=== PATIENT | female | born 2005 | race American Indian/Alaskan Native ===

== ENCOUNTER 2023-01-16 10:05 | Observation (INO) | payer OTHER ==
[~2023-01-16] VITALS: Ht 160 cm; Wt 88.0 kg
[2023-01-16] VITALS (11 sets, daily range): BP systolic 113–134; BP diastolic 74–86
[~2023-01-16 10:05] MED LIST: Zofran4 MG PO
[2023-01-16 10:46] LABS: BASOPHILS ABSOLUTE AUTO 0.05 K/mm3 (0.00-0.23); BASOPHILS PERCENT AUTO 0 % (0-2); EOSINOPHILS ABSOLUTE AUTO 0.04 K/mm3 (0.00-0.68); EOSINOPHILS PERCENT AUTO 0 % (0-6); Hematocrit 37.6 % (33.0-51.0); Hemoglobin 12.8 g/dL (11.5-16.0); IMMATURE GRAN ABSOLUTE AUTO 0.04 K/mm3 (0.00-0.10); IMMATURE GRAN PERCENT AUTO 0 % (0-1); LYMPHOCYTES ABSOLUTE AUTO 1.66 K/mm3 (0.84-5.20); LYMPHOCYTES PERCENT AUTO 14 % (21-46); MONOCYTES ABSOLUTE AUTO 0.81 K/mm3 (0.16-1.47); MONOCYTES PERCENT AUTO 7 % (4-13); Mean Corpuscular Volume 85 fL (80-100); NEUTROPHILS ABSOLUTE AUTO 9.29 K/mm3 (1.96-9.15); NEUTROPHILS PERCENT AUTO 78 % (41-73); Platelet Count 333 K/mm3 (150-400); RDW Coefficient Variation 12.1 % (11.7-14.2); RDW Standard Deviation 37.6 fL (35.1-46.3); Red Blood Cell Count 4.41 M/mm3 (3.80-5.20); White Blood Cell Count 11.89 K/mm3 (4.00-11.30)
[2023-01-16 11:10] LABS: Albumin, Blood 3.7 g/dL (3.4-5.0); Albumin/Globulin Ratio 0.9 (0.8-1.8); Bun/Creatinine Ratio 16.7 (12.0-20.0); Calcium, Blood 8.9 mg/dL (8.5-10.1); Creatinine, Blood 0.66 mg/dL (0.40-1.00); Potassium, Blood 4.2 mmol/L (3.5-5.5); Total Protein, Blood 7.7 g/dL (6.4-8.2)
--- NOTE | 2023-01-16 13:00 | NUR ---
01/16/23 Marian Adams 30MLS OF ISOVUE M-300 MIXED WITH 30MLS OF NORMAL SALINE TO CREATE ISOVUE M-300, NORMAL SALINE 1:1. POURED ONTO STERILE FIELD FOR USE DURING CASE.
--- NOTE | 2023-01-16 14:50 | NUR ---
POST OP: PT TO UNIT AT 1400. A/O,VSS. SURGICAL SITES WNL AT ABD. PT RATES PAIN 3/10 NOW AND SAYS IS TOLERABLE. DENIES N/V. PT ABLE TO SIT UP AND DRINK, EAT CRACKERS. ADMISSION ASSESSMENT COMPLETED. PT EDUCATED ON RISK OF IGNITION SOURCES AND SMOKING WHILE USING OXYGEN. PT DENIES SMOKING. CALL LIGHT IN REACH.
--- NOTE | 2023-01-16 17:13 | NUR ---
DISCHARGE: PT TOLERATING DIET, PAIN MANAGED, AMBULATING AND VOIDING. PACKET PRINTED AND PT EDUCATED. PT REPORTS THAT ESCRIPT ALREADY SENT. IV DC'D WNL, TIP INTACT. PT LEFT UNIT VIA WHEELCHAIR AT 1630 WITH THIS RN
== END 2023-01-16 17:08 | disposition home or self-care (01) ==
LOC: ER 10:05 → SURS 10:06 → ER 11:37 → SURS 11:37 → ER 11:39 → SURS 14:34
PROVIDERS: Physician Assistant; ADMIT Surgery
PROC: BF121ZZ Fluoroscopy of Gallbladder using Low Osmolar Contrast (ICD-10-PCS; principal; 2023-01-16 12:00)
PROC: 0FT44ZZ Resection of Gallbladder, Percutaneous Endoscopic Approach (ICD-10-PCS; principal; 2023-01-16 12:00)
DX: K80.00 Calculus of gallbladder with acute cholecystitis without obstruction (principal)
CPT/HCPCS: 74300; 76705; 80053; 83690; 84703; 85025; 88304; 96374-59; 99285-25; A9270; C1729; J0690; J1100; J1885; J2250; J2405; J2704; J2710; J3010; J7120

== ENCOUNTER 2023-07-25 11:29 | Observation (INO) | payer OTHER ==
[~2023-07-25] VITALS: Ht 160 cm; Wt 81.7 kg
[2023-07-25] VITALS (9 sets, daily range): BP systolic 110–135; BP diastolic 75–91
[2023-07-25 12:32] LABS: BASOPHILS ABSOLUTE AUTO 0.05 K/mm3 (0.00-0.23); BASOPHILS PERCENT AUTO 1 % (0-2); EOSINOPHILS ABSOLUTE AUTO 0.09 K/mm3 (0.00-0.68); EOSINOPHILS PERCENT AUTO 1 % (0-6); Hematocrit 35.1 % (33.0-51.0); Hemoglobin 11.8 g/dL (11.5-16.0); IMMATURE GRAN ABSOLUTE AUTO 0.01 K/mm3 (0.00-0.10); IMMATURE GRAN PERCENT AUTO 0 % (0-1); LYMPHOCYTES ABSOLUTE AUTO 2.28 K/mm3 (0.84-5.20); LYMPHOCYTES PERCENT AUTO 34 % (21-46); MONOCYTES ABSOLUTE AUTO 0.55 K/mm3 (0.16-1.47); MONOCYTES PERCENT AUTO 8 % (4-13); Mean Corpuscular HGB 29.1 pg (26.0-34.0); Mean Corpuscular HGB Conc 33.6 g/dL (31.5-36.5); Mean Corpuscular Volume 87 fL (80-100); Mean Platelet Volume 10.1 fL (9.1-12.4); NEUTROPHILS ABSOLUTE AUTO 3.82 K/mm3 (1.96-9.15); NEUTROPHILS PERCENT AUTO 56 % (41-73); Platelet Count 307 K/mm3 (150-400); RDW Coefficient Variation 11.9 % (11.7-14.2); Red Blood Cell Count 4.05 M/mm3 (3.80-5.20)
[2023-07-25 13:06] LABS: Albumin, Blood 3.4 g/dL (3.4-5.0); Albumin/Globulin Ratio 0.9 (0.8-1.8); Bilirubin, Total 0.7 mg/dL (0.1-1.0); Bun/Creatinine Ratio 16.1 (12.0-20.0); Calcium, Blood 9.1 mg/dL (8.5-10.1); Creatinine, Blood 0.75 mg/dL (0.40-1.00); Globulin, Blood 3.9 g/dL (2.2-4.0); Potassium, Blood 4.3 mmol/L (3.5-5.5); Total Protein, Blood 7.3 g/dL (6.4-8.2)
--- NOTE | 2023-07-25 19:37 | NUR ---
PT ARRIVES TO PACU FOR PRE-OP VIA GURANKITA FROM ER AT 1935. PLEASANT & SMILING. DENIES PAIN/NAUSEA. AFEBRILE/VSS. SURGICAL PACK & BLOOD CONSENT COMPLETE. BP CUFF/PAS SLEEVES/SURGICAL HAT PLACED. NIPPLE RING REMOVED & PLACED IN LABELED CONTAINER. WARM BLANKETS PLACED. NO COMPLAINTS OR QUESTIONS AT THIS TIME.
[2023-07-25] MEDS ORDERED: Bupivacaine 0.5% HCl 5 MG/ML 30MLVIAL ONE (19:39)
[2023-07-25] MEDS ORDERED: propofoL 40 ML IV ONE (19:46)
[2023-07-25] MEDS ORDERED: FentaNYL Citrate 50 MCG/ML 2 ML Injection ONE (19:46)
[2023-07-25] MEDS ORDERED: HYDROmorphone HCl/Pf 1MG SYR ONE ×2 (19:46→20:34)
[2023-07-25] MEDS ORDERED: CeFAZolin Sodium 2,000 MG VIAL ONE (19:56)
[2023-07-25] MEDS ORDERED: ePHEDrine Sulfate 50 MG/ML 1ML Injection ONE (20:24)
[2023-07-25] MEDS ORDERED: Sugammadex Sodium 200 MG/2ML SDV (100 MG/ML) ONE (20:37)
[2023-07-25] MEDS ORDERED: OxyCODONE HCL 5 MG TAB PO PRN (21:35)
[2023-07-25] MEDS ORDERED: Naloxone HCl 0.4MG / ML 1ML Vial IV PRN (21:35)
[2023-07-25] MEDS ORDERED: Simethicone 80 MG Chew PO PRN (21:35)
[2023-07-25] MEDS ORDERED: Ondansetron HCl 2 MG / ML 2ML Vial IV PRN (21:35)
[2023-07-25] MEDS ORDERED: Polyethylene Glycol 3350 17 gm PO PRN (21:35)
[2023-07-25] MEDS ORDERED: DiphenhydrAMINE HCL 25 MG Cap PO PRN (21:40)
[2023-07-25] MEDS ORDERED: Metoclopramide HCl 5MG / ML 2ML Vial IV PRN (21:40)
[2023-07-25] MEDS ORDERED: HYDROmorphone HCl/Pf 1MG SYR IV PRN (21:40)
[2023-07-26] MEDS ORDERED: Acetaminophen 500 MG Tab PO SCH
[2023-07-26] MEDS ORDERED: Ketorolac Tromethamine 30mg Vial IV SCH
[2023-07-26 00:41] VITALS: BP 121/90
[2023-07-26 03:42] VITALS: BP 110/83
[2023-07-26 07:45] VITALS: BP 115/76
--- NOTE | 2023-07-26 08:40 | NUR ---
DISCHARGE POD 1 LAP SITES CDI. PT HAS SCANT TO NO DRAINAGE ON JIM PAD. REPORTS PAIN IS TOLERABLE. SCRIPT GIVEN TO PATIENT. TOLERATING DIET WELL, NO NAUSEA. VOIDING AND AMBULATING. IV REMOVED, SHE IS CURRENTLY JUST WAITING FOR HER MOM ARRIVE AND WILL BE TAKEN OUT WITH WHEELCHAIR.
[2023-07-26] MEDS ORDERED: Ibuprofen 400 MG Tab PO SCH (18:00)
--- NOTE | 2023-07-28 08:52 | NUR ---
07/28/23 0852 Sydnee Savage VERIFICATIONS: EDIT CHART.
== END 2023-07-26 09:03 | disposition home or self-care (01) ==
LOC: ER 11:29 → SURS 11:30
PROVIDERS: Physician Assistant; ADMIT Obstetrics & Gynecology
PROC: 10T24ZZ Resection of Products of Conception, Ectopic, Percutaneous Endoscopic Approach (ICD-10-PCS; principal; 2023-07-25 20:00)
DX: O00.101 Right tubal pregnancy without intrauterine pregnancy (principal)
CPT/HCPCS: 76801; 76817; 80053; 84702; 84703; 85025; 86850; 86900; 86901; 99285-25; A9270; J0690; J1170; J1885; J2704; J3010